=== PATIENT | male | born 1995 | race Hispanic/Latino ===

== ENCOUNTER 2016-11-10 11:02 | Emergency (ER) | payer MEDICAID, OTHER ==
[2016-11-10 11:41] VITALS: BMI 30.1
--- NOTE | 2016-11-10 11:48 | ED PDOC ---
HPI: Back Time Seen by Provider: 11/10/16 11:47 Chief Complaint (Nursing): Trauma Chief Complaint (Provider): BACK INJURY History Per: Patient (21 Y/O MALE HERE FOR EVALUATION OF FALL INJURY THAT OCCURRED YESTERDAY. FELL DOWN 13 STAIRS WITH BACK PAIN/LEFT HIP PAIN TODAY. ABLE TO AMBULATE. NO RELIEF DESPITE MOTRIN X 2 DOSES YESTERDAY. DENIES ANY URINARY OR RECTAL INCONTINENCE.) Past Medical History Reviewed: Historical Data, Nursing Documentation, Vital Signs - Family History Family History: States: No Known Family Hx - Immunization History Hx Tetanus Toxoid Vaccination: No Hx Influenza Vaccination: No Hx Pneumococcal Vaccination: No - Home Medications Home Medications: Ambulatory Orders Medication Instructions Recorded Cyclobenzaprine [Flexeril] 5 mg PO BID #10 tab 08/28/15 Naproxen 500 mg PO BID #30 tab 08/28/15 Oxycodone HCl/Acetaminophen 1 tab PO Q6 PRN #6 tab 08/28/15 [Percocet 325 mg-5 mg] Ibuprofen [Motrin] 600 mg PO Q8 PRN #21 tab 11/10/16 diaZEpam [Valium] 5 mg PO Q6 PRN #8 tab 11/10/16 - Allergies Allergies/Adverse Reactions: Allergies Allergy/AdvReac Type Severity Reaction Status Date / Time No Known Allergies Allergy Verified 08/28/15 13:03 Review of Systems ROS Statement: Except As Marked, All Systems Reviewed And Found Negative Physical Exam - Reviewed Nursing Documentation Reviewed: Yes Vital Signs Reviewed: Yes - Physical Exam Appears: Positive for: Well, Non-toxic, No Acute Distress Head Exam: Positive for: ATRAUMATIC, NORMAL INSPECTION, NORMOCEPHALIC Skin: Positive for: Normal Color, Warm, DRY Eye Exam: Positive for: EOMI, Normal appearance, PERRL ENT: Positive for: Normal ENT Inspection Neck: Positive for: Normal, Painless ROM Cardiovascular/Chest: Positive for: Regular Rate, Rhythm Respiratory: Positive for: CNT, Normal Breath Sounds Gastrointestinal/Abdominal: Positive for: Normal Exam, Bowel Sounds, Soft Back: Positive for: Normal Inspection Extremity: Positive for: Normal ROM Neurologic/Psych: Positive for: Alert, Oriented - Progress ED Course And Treament: LUMBAR SPINE: NO FX HIP XRY: NO FX TORADOL 60 MG IM VALIUM 5 MG PO Disposition - Clinical Impression Clinical Impression: Back pain, Contusion, hip, Back spasm - Patient ED Disposition Is Patient to be Admitted: No - Disposition Disposition: Routine/Home Disposition Time: 12:58 Condition: FAIR Prescriptions: diaZEpam [Valium] 5 mg PO Q6 PRN #8 tab PRN Reason: Muscle Spasm Ibuprofen [Motrin] 600 mg PO Q8 PRN #21 tab PRN Reason: Pain, Moderate (4-7) Instructions: Muscle Spasm (ED), Hip Contusion (ED), Acute Low Back Pain (ED), Acute Low Back Pain (DC) Forms: [facility] ED School/Work Excuse
[2016-11-10 13:20] VITALS: BP 114/65; PULSE 60; RESP 18; TEMP 97.6; O2SAT 99
--- NOTE | 2016-11-10 13:52 | RAD ---
PROCEDURE: Radiographs of the Lumbar Spine. HISTORY: BACK INJURY COMPARISON: None available FINDINGS: BONES: Alignment appears satisfactory. No listhesis. No acute displaced fracture. DISC SPACES: Unremarkable. OTHER FINDINGS: None. IMPRESSION: No acute displaced fracture or subluxation identified.
--- NOTE | 2016-11-10 13:55 | RAD ---
Indication: Hip injury Left hip with pelvis Comparison: None available Findings: No acute displaced fracture or dislocation identified. Sacroiliac joints appear intact. Soft tissues appear unremarkable. No evidence of radiopaque foreign body. Impression: No acute displaced fracture or dislocation evident. If high clinical index of suspicion, suggest cross-sectional imaging for further evaluation. Otherwise, if symptoms persist or if there is continued clinical concern, x-ray follow-up in 7-10 days should be considered.
== END 2016-11-10 13:21 | disposition home or self-care (01) ==
LOC: H.ER 11:02
DX: M54.9 Dorsalgia, unspecified (principal); S70.02XA Contusion of left hip, initial encounter; W10.9XXA Fall (on) (from) unspecified stairs and steps, initial encounter; Y92.89 Other specified places as the place of occurrence of the external cause